=== PATIENT | female | born 1970 ===

== ENCOUNTER 2022-05-20 04:57 | Day surgery (SDC) | payer OTHER ==
[2022-05-16 15:37] VITALS: BMI 18.1
[2022-05-20 09:12] VITALS: TEMP 98
[2022-05-20 12:42] VITALS: BP 100/55; PULSE 67; RESP 17
== END 2022-05-20 11:49 | disposition home or self-care (01) ==
LOC: JASU-ENDO 04:57 → MERGE 09:30 → JASU-ENDO 11:49
PROVIDERS: ATTEND Internal Medicine Gastroenterology
PROC: 0DJD8ZZ Inspection of Lower Intestinal Tract, Via Natural or Artificial Opening Endoscopic (ICD-10-PCS; principal; 2022-05-20 09:30)
DX: Z12.11 Encounter for screening for malignant neoplasm of colon (principal); K64.8 Other hemorrhoids
CPT/HCPCS: 81025